=== PATIENT | female | born 1995 | race Caucasian/White ===

== ENCOUNTER 2018-07-12 21:04 | Emergency (ER) | payer SELFPAY ==
[2018-07-13] MEDS: LIDOCAINE 1% (MDV) 20 ML INJ SC (02:40)
[2018-07-13] MEDS: TRIMETHOPRIM/SULFAMETHOX (DS) TAB PO (05:00)
[2018-07-13] MEDS: CEFTRIAXONE 1 GM INJ IM (05:00)
[2018-07-13] MEDS: LIDOCAINE 1% (MPF) 5 ML VIAL INFIL (05:01)
[2018-07-13 05:22] LABS: URINE BLOOD (Dip) POC 3+ (NEGATIVE); URINE GLUCOSE (Dip) POC Negative (NEGATIVE); URINE KETONES (Dip) POC 1+ (NEGATIVE); URINE LEUKOCYTE EST (Dip) POC Negative (NEGATIVE); URINE NITRITE (Dip) POC Negative (NEGATIVE); URINE TOTAL PROTEIN POC 2+ (NEGATIVE)
[2018-07-13] MEDS: ONDANSETRON (ODT) 4 MG TAB ODT (05:30)
[2018-07-13] MEDS: traMADol 50 MG TAB PO (05:30)
[2018-07-13] MEDS: ACETAMINOPHEN 500 MG TAB PO (05:46)
[2018-07-13] MEDS: IBUPROFEN 600 MG TAB PO (05:46)
== END 2018-07-13 05:55 | disposition home or self-care (01) ==
LOC: FTE 21:04
DX: N75.8 Other diseases of Bartholin's gland (principal); N76.4 Abscess of vulva; N76.0 Acute vaginitis
CPT/HCPCS: 56420; 81003; 87210; 87591; 96372; 99284-25

== ENCOUNTER 2018-07-15 16:38 | Emergency (ER) | payer SELFPAY, OTHER | END 2018-07-15 17:39 | disposition home or self-care (01) | LOC: FTE 16:38 | DX: N76.4 Abscess of vulva (principal) | CPT/HCPCS: 99281 ==